=== PATIENT | male | born 1945 | race Caucasian/White ===

== ENCOUNTER 2019-05-23 20:35 | Emergency (ER) | payer OTHER ==
[2019-05-23 20:46] VITALS: BP 99/46; PULSE 83; TEMP 98.3; BMI 29.7
[2019-05-23] MEDS ORDERED: ACETAMINOPHEN 325 MG TABLET (FP) PO ONE (22:05)
--- NOTE | 2019-05-23 22:43 | PDOC ---
History of Present Illness - General Chief Complaint: Cold Symptoms Stated Complaint: FEVER Time Seen by Provider: 05/23/19 21:47 History Source: Patient Exam Limitations: No Limitations - History of Present Illness Initial Comments: Mariano Osborne is a 73 yo M w a pmh of HTN and NIDDM who presents to the ER with his for a subjective fever of 3 days duration. He states he has also had some mid lower back pain. He reports that he would not have presented to the hospital if not for his but bc he came for his he decided to be evaluated. Patient also endorses sporadic pain which radiates down his right leg when he bends over. States this is chronic in nature and not related to his fever. He denies SOB, cough, productive sputum, nausea, vomiting, diarrhea, constipation, dysuria, frequency, urgency PCP: Heraclio Baker PSH: None reported Social Hx: Denies smoking, drinkng or other substance abuse Allergies: NKA, NKDA Past History - Past Medical History Allergies/Adverse Reactions: Allergies Allergy/AdvReac Type Severity Reaction Status Date / Time No Known Allergies Allergy Verified 05/23/19 22:27 COPD: No Diabetes: Yes HTN: Yes - Psycho Social/Smoking Cessation Hx Smoking History: Never smoked Hx Alcohol Use: No Drug/Substance Use Hx: No Review of Systems - Review of Systems Able to Perform ROS?: Yes Comments:: CONSTITUTIONAL: Present: fever Absent: no chills, no fatigue EYES: Absent: visual changes ENT: Absent: ear pain, no sore throat CARDIOVASCULAR: Absent: chest pain, no palpitations RESPIRATORY: Absent: cough, no SOB GI: Absent: abdominal pain, no nausea, no vomiting, no constipation, no diarrhea GENITOURINARY: Absent: dysuria, no frequency, no hematuria MUSKULOSKELETAL: Absent: no arthralgia, no myalgia SKIN: Absent: rash NEURO: Absent: headache *Physical Exam - Vital Signs Last Vital Signs Temp Pulse Resp BP Pulse Ox 98.3 F 83 19 99/46 L 97 05/23/19 20:42 05/23/19 20:42 05/23/19 20:42 05/23/19 20:42 05/23/19 20:42 - Physical Exam GENERAL: Well-appearing, well-nourished. No apparent distress. HEENT: Normocephalic, atraumatic. PERRL, EOM intact. CARDIOVASCULAR: Normal S1, S2. Regular rate and rhythm. PULMONARY: No evidence of respiratory distress. Lungs clear to auscultation bilaterally. No wheezing, rales or rhonchi. ABDOMEN: Soft, non-distended, non-tender. EXTREMITIES: Normal ROM in all four extremities. No gross deformities. SKIN: Warm, dry. No rash NEUROLOGICAL: No focal neurological deficits. ED Treatment Course - RADIOLOGY Radiology Studies Ordered: Category Date Time Status CHEST PA & LAT [RAD] Stat Radiology 05/23/19 22:04 Taken Medical Decision Making - Medical Decision Making Mariano Osborne is a 73 yo M w a pmh of HTN and NIDDM who presents to the ER with his for a subjective fever of 3 days duration. He states he has also had some mid lower back pain. He reports that he would not have presented to the hospital if not for his but bc he came for his he decided to be evaluated. Patient also endorses sporadic pain which radiates down his right leg when he bends over. States this is chronic in nature and not related to his fever. Vital Signs Temp Pulse Resp BP Pulse Ox 98.3 F 83 19 99/46 L 97 05/23/19 20:42 05/23/19 20:42 05/23/19 20:42 05/23/19 20:42 05/23/19 20:42 DDx IBNLT: viral illness, PNA, influenza, sciatica Plan: flu swab, cxr, tylenol, re-assess flu swab: negative CXR: Unremarkable re-assessment: patient has no complaints after tylenol and is happy his will be admitted and taken care of Disposition: Home with PCP FU Discharge - Discharge Information Problems reviewed: Yes Clinical Impression/Diagnosis: Fever Qualifiers: Fever type: unspecified Qualified Code(s): R50.9 - Fever, unspecified Condition: Stable Disposition: HOME - Admission No - Follow up/Referral Referrals: Heraclio Baker [Primary Care Provider] - - Patient Discharge Instructions Patient Printed Discharge Instructions: How to Avoid a Cold or Flu, DI for Common Cold Additional Instructions: You came into the ER with a fever. We did a chest x-ray and a flu swab which were both negative. Please schedule a follow up with your primary care doctor in the next 3 to 5 days Come back to the ER with any new or worsening concerns. Thank you for coming to the [facility] ER. We hope you feel better soon! Print Language: YI - Post Discharge Activity
--- NOTE | 2019-05-23 23:37 | PDOC ---
Attending Attestation - Resident Resident Name: Taiwo Marai - ED Attending Attestation I have performed the following: I have examined & evaluated the patient, The case was reviewed & discussed with the resident, I agree w/resident's findings & plan, Exceptions are as noted - HPI HPI: 05/23/19 23:23 See resident HPI - Physicial Exam PE: 05/23/19 23:23 Agree with documented exam - Medical Decision Making 05/23/19 23:23 73M accompanying who is also being evaluated states he had subjective fevers, no n/v, cough, sob, sick contacts, recent travel VS BP 99/46, otherwise unremarkable tylenol re-eval pt asymptomatic dc Discharge - Discharge Information Problems reviewed: Yes Clinical Impression/Diagnosis: Fever Qualifiers: Fever type: unspecified Qualified Code(s): R50.9 - Fever, unspecified Condition: Stable Disposition: HOME - Follow up/Referral Referrals: Heraclio Baker [Primary Care Provider] - - Patient Discharge Instructions Patient Printed Discharge Instructions: How to Avoid a Cold or Flu, DI for Common Cold Additional Instructions: You came into the ER with a fever. We did a chest x-ray and a flu swab which were both negative. Please schedule a follow up with your primary care doctor in the next 3 to 5 days Come back to the ER with any new or worsening concerns. Thank you for coming to the [facility] ER. We hope you feel better soon! Print Language: PANAMANIAN - Post Discharge Activity
== END 2019-05-23 23:23 | disposition home or self-care (01) ==
LOC: JERFT 20:35
DX: R50.9 Fever, unspecified (principal); I10 Essential (primary) hypertension; E11.9 Type 2 diabetes mellitus without complications; Z79.84 Long term (current) use of oral hypoglycemic drugs
CPT/HCPCS: 71046-TC-FY; 87804; 99283-25

== ENCOUNTER 2023-12-10 13:35 | Emergency (ER) | payer OTHER ==
[2023-12-10 14:00] VITALS: BP 171/85; PULSE 82; RESP 18; TEMP 97; BMI 25.4
== END 2023-12-10 15:02 | disposition home or self-care (01) ==
LOC: JER 13:35
DX: I10 Essential (primary) hypertension (principal); M25.561 Pain in right knee; M25.562 Pain in left knee; G89.29 Other chronic pain
CPT/HCPCS: 99283-25